=== PATIENT | female | born 1945 | race Caucasian/White ===

== ENCOUNTER → 2017-01-29 | Outpatient (CLI) | payer MEDICARE, OTHER | END | disposition home or self-care (01) | LOC: RAD.S 12:54 | DX: R92.8 Other abnormal and inconclusive findings on diagnostic imaging of breast (principal); C50.111 Malignant neoplasm of central portion of right female breast; I10 Essential (primary) hypertension; N63 Unspecified lump in breast; Z98.890 Other specified postprocedural states ==